=== PATIENT | male | born 1985 | race Hispanic/Latino ===

== ENCOUNTER 2021-01-03 19:34 | Emergency (ER) | payer SELFPAY ==
--- NOTE | ~2021-01-03 | XR_ITS ---
EXAMINATION: XR hand LT min 3V EXAM DATE: 01/03/2021 20:02 INDICATION: LT 5TH Finger Injury- Proximal Phalanx X 1 WK ago. TECHNIQUE: Left hand frontal, lateral and oblique projections obtained and reviewed. There is no radha or study for comparison. FINDINGS: There is acute closed posttraumatic mildly comminuted nondisplaced fracture of the left 5th proximal phalangeal shaft. There is an old ulnar styloid base avulsion fracture with nonunion. IMPRESSION: Left 5th proximal phalangeal shaft extra-articular fracture. Reviewed, dictated and finalized at location A. UNICATIONS MAINTAINER
--- NOTE | ~2021-01-03 | XR_ITS ---
EXAMINATION: XR ribs RT 2V w CXR 2V EXAM DATE: 01/03/2021 21:24 INDICATION: Fall Last Friday Pain To Lower Rt Ribs. TECHNIQUE: Frontal projection of the upper right ribs, frontal projection of the lower right ribs, ob lique projection of the right ribs, frontal and lateral chest x-ray(s) for interpretation. There is no prior study for comparison. FINDINGS: There is right 7th rib acute fracture anteriorly. This finding has been indicated, marked o n the examination for review, clinical correlation. No confluent consolidation, pneumothorax or ple ural effusion suspected. Cardiomediastinal silhouette is normal. IMPRESSION: Acute right 7th rib fracture anteriorly. Reviewed, dictated and finalized at location A. ET LITHOGRAPHIC PRESS OPERATOR
[2021-01-03 19:44] VITALS: BP 140/91; PULSE 74; RESP 18; TEMP 36.3; O2SAT 99
--- NOTE | 2021-01-03 21:49 | WC.ED.TRAUMA ---
HPI - Trauma General Chief Complaint: Extremity Injury, Upper Stated Complaint: right rib pain left hand pain Time Seen by Provider: 01/03/21 20:19 Source: patient and family Mode of arrival: ambulatory Limitations: language barrier History of Present Illness HPI narrative: 35-year-old with no major medical problems here with complaints of right finger pain and right lower rib.. Patient states that he fell while playing soccer landed on his right hand and chest. He denies any shortness of breath. Denies any head and neck injuries. MD complaint: fall Onset (ago): day(s) (1) Loss of Consciousness: no Location: chest Severity: mild Context: fall Associated symptoms: denies other symptoms Related Data Allergies Allergy/AdvReac Type Severity Reaction Status Date / Time No Known Allergies Allergy Verified 01/03/21 20:27 Review of Systems Review of Systems: All systems reviewed & are unremarkable except as noted in HPI and below Constitutional: Constitutional: Reports no additional constitutional complaints Eyes: Eyes: Reports no additional eye complaints ENT: Reports system reviewed and no additional complaints, except as documented Cardiovascular: Cardiovascular: Reports no additional cardiovascular complaints Respiratory: Respiratory: Reports as per HPI Gastrointestinal: Gastrointestinal: Reports no additional gastrointestinal complaints Musculoskeletal: Musculoskeletal: Reports as per HPI Integumentary/Breasts: Skin/Breast: Reports system reviewed and no additional complaints, except as docu Endocrine: Endocrine: Reports no additional endocrine complaints Exam Narrative: GENERAL: Well-appearing, well-nourished, and in no acute distress. HEAD: Normocephalic, atraumatic. EYES: PERRLA and EOMI. NECK: Supple. CHEST: Clear to auscultation. No respiratory distress. Mild tenderness in the right lower costal margin but no deformity good air entry on both sides HEART: Regular rate and rhythm. No murmur heard. Normal peripheral pulses. ABDOMEN: Soft, nontender, nondistended, normal active bowel sounds. EXTREMITIES: Normal range of motion. No edema. Examination of the right hand shows mild soft tissue swelling at the PIP joint. Otherwise good range of motion. SKIN: Warm, dry, no rash. NEURO: No focal deficits. Alert and oriented x3. PSYCH: Normal mood and affect. Course Course Emergency Course: Inform patient about his x-ray findings advised him to take pain medication. Follow-up with a hand surgeon. Vital Signs Vital signs: Vital Signs Temperature 36.3 C L 11/10/21 19:44 Pulse Rate 74 01/03/21 19:44 Respiratory Rate 18 01/03/21 19:44 Blood Pressure 140/91 H 01/03/21 19:44 Pulse Oximetry 99 01/03/21 19:44 Temperature 36.3 C L 01/03/21 19:44 Pulse Rate 74 01/03/21 19:44 Respiratory Rate 18 01/03/21 19:44 Blood Pressure 140/91 H 01/03/21 19:44 Pulse Oximetry 99 01/03/21 19:44 MDM - Trauma Imaging Data Radiologist's impression: ITS Impressions Hand X-Ray 01/03/21 20:03 IMPRESSION: Left 5th proximal phalangeal shaft extra-articular fracture. Ribs w/Chest X-Ray 01/03/21 21:31 IMPRESSION: Acute right 7th rib fracture anteriorly. Discharge Plan Discharge Clinical Impression: Fracture of finger of right hand Qualifiers: Encounter type: initial encounter Finger: little finger Fracture type: closed Phalanx: proximal Fracture alignment: nondisplaced Qualified Code(s): S62.646A - Nondisplaced fracture of proximal phalanx of right little finger, initial encounter for closed fracture Rib fracture Qualifiers: Encounter type: initial encounter Rib fracture type: single rib Fracture type: closed Laterality: right Qualified Code(s): S22.31XA - Fracture of one rib, right side, initial encounter for closed fracture Patient Disposition: Home, Self-Care Condition: Stable Instructions: Antibiotic Form, Finger Fracture (ED), Rib Fracture (ED) Additi
[2021-01-03 22:32] VITALS: BP 112/76; PULSE 60; RESP 16; O2SAT 98
== END 2021-01-03 22:34 | disposition home or self-care (01) ==
PROVIDERS: Emergency Provider Family Medicine
DX: S62.646A Nondisplaced fracture of proximal phalanx of right little finger, initial encounter for closed fracture (principal); S22.31XA Fracture of one rib, right side, initial encounter for closed fracture; W01.0XXA Fall on same level from slipping, tripping and stumbling without subsequent striking against object, initial encounter
CPT/HCPCS: 29130; 71046; 71100; 73130; 99284

== ENCOUNTER 2021-10-12 21:13 | Emergency (ER) | payer SELFPAY ==
--- NOTE | ~2021-10-12 | XR_ITS ---
EXAMINATION: XR finger 4th RT min 2V DATE: 10/12/2021 22:27 INDICATION: Right hand fourth digit laceration. TECHNIQUE: 3 views of right hand fourth digit were obtained. COMPARISON: None. FINDINGS: Bone alignment is normal. No fracture. Joint spaces are well maintained. IMPRESSION: 1. No fracture or radiopaque foreign body. Reviewed, dictated and finalized at location A.
[2021-10-12 21:36] VITALS: BP 127/73; PULSE 70; RESP 16; TEMP 36.3; O2SAT 100
--- NOTE | 2021-10-12 22:20 | ED.GENADULT ---
HPI - General Adult General Chief complaint: Wound/Laceration Stated complaint: finger laceration Time Seen by Provider: 10/12/21 22:11 History of Present Illness HPI narrative: 36 year old right-handed male here for evaluation of a laceration accidentally sustained to his right 4th digit about 30 minutes prior to arrival with a circular saw. Denies any numbness or tingling, difficulty moving the finger. He is unsure of his last tetanus shot. Related Data Allergies Allergy/AdvReac Type Severity Reaction Status Date / Time No Known Allergies Allergy Verified 10/12/21 21:38 Review of Systems Review of Systems: Gen: Denies fevers or chills Eyes: Denies eye pain or visual change ENT: Denies congestion Respiratory: Denies shortness of breath or cough CV: Denies chest pain or palpitations GI: Denies abdominal pain nausea, emesis or diarrhea denies burning, urgency, frequency or hematuria Musculoskeletal: Denies back pain or muscle pain Neuro: Denies numbness, tingling, weakness or focal weakness Skin: Reports laceration Except as documented, all other systems reviewed and negative Exam Narrative: Gen: alert, oriented, no acute distress Eyes: EOMI, no icterus Pulm: Respirations even and unlabored, symmetric thorax expansion, no audible stridor or visible cyanosis CV: Regular rate per telemetry GI: No distension, no voluntary/involuntary guarding Neuro: AOx4, moves all extremities without apparent difficulty or weakness, follows commands Skin: 2 cm irregular laceration overlying the dorsal aspect of his right third digit distal to the DIP. FROM in digit. Sensation intact distal to laceration Psych: Normal mood/affect, insight/judgement good, adequate fund of knowledge, recent/remote memory intact Course Vital Signs Vital signs: Vital Signs Temperature 97.4 F L 10/12/21 21:36 Pulse Rate 70 10/12/21 21:36 Respiratory Rate 16 10/12/21 21:36 Blood Pressure 127/73 10/12/21 21:36 Pulse Oximetry 100 10/12/21 21:36 Oxygen Delivery Room Air 10/12/21 21:36 Temperature 97.4 F L 10/12/21 21:36 Pulse Rate 70 10/12/21 21:36 Respiratory Rate 16 10/12/21 21:36 Blood Pressure 127/73 10/12/21 21:36 Pulse Oximetry 100 10/12/21 21:36 Oxygen Delivery Room Air 10/12/21 21:36 Procedures Laceration Laceration 1: Date: 10/12/21 Time: 23:43 Site: other (r 3rd digit) Side (If applicable): right Size (cm): 2 Description: linear Depth: simple, single layer Local Anesthetic: lidocaine 1% Amount of anesthesia used (mL): 2 Pre-repair: wound explored, irrigated and irrigated extensively ====== Skin Level ====== Skin layer closed with: other (ethilon) Size (cm): 5-0 Number of sutures: 4 Technique: simple, interrupted ====== Subcutaneous Layer ====== ====== Muscle Layer ====== ====== Tendon Layer ====== Medical Decision Making MDM Narrative Medical decision making narrative: 36-year-old male here for evaluation of a laceration sustained to his right third digit from a circular cutting saw about 30 minutes prior to arrival. On exam he has an irregular laceration but he is neurovascularly intact distal to the injury, laceration not actively bleeding. X-ray was obtained given mechanism of injury, with no evidence of radiopaque foreign body or fracture. The wound was irrigated with tap water and normal saline. Closure was obtained with simple interrupted sutures. Patient's tetanus was updated in the ED. He was advised on wound care and given reasons to return to the ED and he voiced understanding. Vital Signs Vital Signs: Vital Signs Temperature 97.4 F L 10/12/21 21:36 Pulse Rate 70 10/12/21 21:36 Respiratory Rate 16 10/12/21 21:36 Blood Pressure 127/73 10/12/21 21:36 Pulse Oximetry 100 10/12/21 21:36 Oxygen Delivery Room Air 10/12/21 21:36 Temperature 97.4 F L 08
[2021-10-13] MEDS: TETANUS,DIPHTHERIA,AC PERTUSSIS ADULT (0.5 ML) BOOSTRIX IM (00:12)
== END 2021-10-13 00:20 | disposition home or self-care (01) ==
PROVIDERS: Emergency Provider Emergency Medicine
DX: S61.214A Laceration without foreign body of right ring finger without damage to nail, initial encounter (principal); W27.0XXA Contact with workbench tool, initial encounter; Z23 Encounter for immunization
CPT/HCPCS: 12001; 73140; 90471; 90715; 99283